=== PATIENT | female | born 1980 | race Caucasian/White ===

== ENCOUNTER 2017-10-14 13:15 | Emergency (ER) | payer OTHER ==
--- NOTE | 2017-10-14 14:50 | EDM.PDOC ---
Scribed by Mary Rosales 10/14/17 [id number] for Gurjit Turcios MD ED HPI GENERAL MEDICAL PROBLEM - General Chief Complaint: Respiratory Problem Stated Complaint: COUGH X 3 WEEKS Time Seen by Provider: 10/14/17 13:44 Source of Information: Reports: Patient, RN, RN Notes Reviewed History Limitations: Reports: No Limitations - History of Present Illness INITIAL COMMENTS - FREE TEXT/NARRATIVE: Patient presents with cough x3 weeks. She has been to the clinic on 3 occasions and treated with 2 courses of antibiotics. She is not sure what the firs one was but the second was a Z-DAVION.She has also been treated with Tessalon Perles. She has not gotten any better. The first time she was seen in the clinic she was diagnosed with an ear infection and believes it has resolved. During the past week she has developed a sore throat. She is not sure if she has had a fever or not. Duration: Constant Location: Reports: Chest Quality: Reports: Ache Severity: Moderate Improves with: Reports: None Worsens with: Reports: None Associated Symptoms: Reports: No Other Symptoms Chest Pain Score (Numeric/FACES): 3 - Related Data Allergies Allergy/AdvReac Type Severity Reaction Status Date / Time No Known Allergies Allergy Verified 10/14/17 13:40 Home Meds: Home Meds Ethinyl Estradiol/Etonogestrel [Nuvaring Vaginal Ring] 1 device ICERVIC ASDIRECTED 10/14/17 [History] Sertraline HCl [Sertraline HCl] 100 mg PO DAILY 10/14/17 [History] Social & Family History - Family History Family Medical History: Noncontributory ED ROS GENERAL - Review of Systems Review Of Systems: ROS reveals no pertinent complaints other than HPI. ED EXAM, GENERAL - Physical Exam Exam: See Below Exam Limited By: No Limitations General Appearance: Alert, WD/WN, No Apparent Distress Eye Exam: Bilateral Eye: Normal Inspection Ears: Normal External Exam, Normal Canal, Hearing Grossly Normal, Normal TMs Nose: Normal Inspection, Normal Mucosa, No Blood Throat/Mouth: Normal Inspection, Normal Lips, Normal Teeth, Normal Gums, Normal Oropharynx, Normal Voice, No Airway Compromise Head: Atraumatic, Normocephalic Neck: Normal Inspection, Supple, Non-Tender, Full Range of Motion Respiratory/Chest: Other (harsh cough, occasional produces small amount of thick yellow sputum.) Cardiovascular: Normal Peripheral Pulses, Regular Rate, Rhythm, No Edema, No Gallop, No JVD, No Murmur, No Rub GI/Abdominal: Normal Bowel Sounds, Soft, Non-Tender, No Organomegaly, No Distention, No Abnormal Bruit, No Mass (Female) Exam: Deferred Rectal (Female) Exam: Deferred Neurological: Alert, Oriented, CN II-XII Intact, Normal Cognition, Normal Gait, Normal Reflexes, No Motor/Sensory Deficits Psychiatric: Normal Affect, Normal Mood Skin Exam: Warm, Dry, Intact, Normal Color, No Rash Course - Vital Signs Last Recorded V/S: Last Vital Signs Temp 37.3 C 10/14/17 13:44 Pulse 117 H 10/14/17 13:44 Resp 18 10/14/17 13:44 BP 138/81 10/14/17 13:44 Pulse Ox 98 10/14/17 13:44 - Orders/Labs/Meds Orders: Active Orders 24 hr Category Date Time Status Chest 2V [CR] Stat Exams 10/14/17 14:00 Taken CULTURE STREP A CONFIRMATION [RM] Stat Lab 10/14/17 14:00 Results STREP SCRN A RAPID W CULT CONF [RM] Stat Lab 10/14/17 14:00 Results Labs: Rapid strep: Negative. - Radiology Interpretation Free Text/Narrative:: Chest x-ray: No acute cardiopulmonary abnormality. See rad report. Departure - Departure Time of Disposition: 14:47 Disposition: Home, Self-Care 01 Condition: Fair Clinical Impression: Bronchitis, Acute bronchospasm - Discharge Information Instructions: Bronchospasm, Adult, Acute Bronchitis, [id number] Forms: ED Department Discharge Additional Instructions: RX: Prednisone 20mg. RX: Promethazine Codeine syrup. (*do not drive or work while under the influence of this medication). Drink plenty of water. Follow up in clinic in 4-5 days for recheck. - My Orders Last 24 Hours: My Active Orders 10/14/17 14:00 Chest 2V [CR] Stat CULTURE STREP A CONFIRMATION [RM] Stat STREP SCRN A RAPID W CULT CONF [RM] Stat - Assessment/Plan Last 24 Hours: My Active Orders 10/14/17 14:00 Chest 2V [CR] Stat CULTURE STREP A CONFIRMATION [RM] Stat STREP SCRN A RAPID W CULT CONF [RM] Stat I have read and agree with the documentation that has been completed regarding this visit. By signing this record, I attest that the documentation was completed in my physical presence and is an accurate record of the encounter.
== END 2017-10-14 14:56 | disposition home or self-care (01) ==
LOC: DL.ED 13:15
DX: J98.01 Acute bronchospasm (principal); J40 Bronchitis, not specified as acute or chronic; Z79.899 Other long term (current) drug therapy
CPT/HCPCS: 71046; 87081; 87430; 99283

== ENCOUNTER 2019-05-02 10:32 | Day surgery (SDC) | payer OTHER ==
[~2019-05-02 10:32] MED LIST: Lactated Ringers 1,000 ML IV SCH
[2019-05-02] MEDS ORDERED: Propofol 200 MG/20 ML SDV IV ONE (10:33)
[2019-05-02] MEDS ORDERED: Ketorolac 30 MG/ML SDV IVPUSH ONE (10:33)
[2019-05-02] MEDS ORDERED: Midazolam 1 MG/ML 2 ML SDV IV ONE (10:33)
[2019-05-02] MEDS ORDERED: Dexamethasone 4 MG/ML SDV IV ONE (10:33)
[2019-05-02] MEDS ORDERED: fentaNYL 100 MCG/2 ML SDV IV ONE (10:33)
[2019-05-02] MEDS ORDERED: Ondansetron 4 MG/2 ML SDV IV ONE (10:33)
[2019-05-02] MEDS ORDERED: Lidocaine 2% 20 ML MDV INJECT ONE (10:33)
[2019-05-02] MEDS ORDERED: Ferric Subsulfate Topical Soln 8 GM (8 ML) Bottle ONE ×2 (11:03→11:05)
[2019-05-02] MEDS ORDERED: Silver Nitrate Applicator Each ONE (11:04)
[2019-05-02] MEDS ORDERED: Oxytocin/Normal Saline 30 UNIT/500 ML BAG ONE ×2 (11:04→12:56)
[2019-05-02] MEDS ORDERED: ceFAZolin 2 GM in Premix Bag 1 BAG IV SCH (11:30)
[2019-05-02] MEDS ORDERED: ceFAZolin 1 GM in Sodium Chloride 0.9% 50 ML IV ONE (11:30)
[2019-05-02] MEDS: Oxytocin/Normal Saline 30 UNIT/500 ML BAG IV SCH ×2 (12:25→12:59)
--- NOTE | 2019-05-02 14:46 | OR ---
DATE: 05/02/2019 PREOPERATIVE DIAGNOSIS: Incomplete miscarriage at approximately 8 weeks' gestation. POSTOPERATIVE DIAGNOSIS: Incomplete miscarriage at approximately 8 weeks' gestation, pathology report pending. PROCEDURE: Dilation and curettage with suction curettage. ANESTHESIA: General. ESTIMATED BLOOD LOSS: Approximately 250 mL. COMPLICATIONS: None. DESCRIPTION OF PROCEDURE: After the patient had received her 2 g of Ancef preoperatively, she was taken back to the operating room. The patient was routinely prepped and draped in the usual fashion after the induction of satisfactory general anesthesia. The bimanual exam was again done and revealed the uterus to be in the mid position and about 8-week size. There were no adnexal masses. There was only a very scant amount of bleeding from the cervix, which appeared to be closed. Now, I had to use 2 different weighted speculums to try to get access to the cervix. Actually, I used long vaginal retractors as well and neither of these measures gave us access to the cervix, so finally we did utilize a bivalve speculum. Now, the cervix came into better view, and I did cleanse the cervix again with extra Betadine prepping and scrubbing. The single-tooth tenaculum was now attached to the anterior lip of the cervix, and we were carefully able to bring the cervix down towards me slightly for better exposure. Now, the uterus was very carefully and gently sounded to approximately 8.5 cm. Then, the Aguila dilators were utilized, and we were able to go to #8. Now, the curette was introduced and a moderate to large amount of tissue was obtained on the curettage. Great caution and extra caution were taken to make sure that all aspects of the endometrial cavity were very carefully and very symmetrically curetted, but also we were careful to not over- curette this delicate organ. As mentioned above, there was a moderate to large amount of tissue now and also there was some brisk bleeding that was occurring. Then, I switched over to the suction curettage using a #8 curved cannula and some blood was sucked out of the vaginal canal and now the cannula was carefully introduced and once again we were very careful and symmetrical and methodical to very gently but thoroughly do a suction curettage procedure on all aspects of the endometrial cavity. Once again, I did see some fairly heavy bleeding and at this time the IV intraoperative Pitocin was begun. This seemed to improve the bleeding and then I did go back one more time with a very gentle curettage using the regular curette. A slight amount of tissue was further obtained and then one last time we went back in with the suction curettage to make every effort to completely evacuate this tissue. Now, the bleeding did start to subside and also at 2 different junctures, I did carefully do uterine massage to promote clamping down and jenaro of the uterus. This helped the blood loss and finally there was no further blood coming from the external os, and we did submit all of the tissue from the suction curettage as well as the material from the regular D and C on the Telfa pads. All of the instruments were removed after the cervix and vaginal canal were very carefully inspected again towards the end of the procedure. As mentioned above, there was no further bleeding from the cervix. The bimanual exam was again repeated and abundant uterine massage, and pelvic exam was unchanged and normal. The uterus was a bit smaller, of course. The patient's vital signs have remained stable at all times during the procedure. The sponge and instrument count was reported as correct. She did receive 2 g of Ancef preoperatively. I have visited previously as well as in the postop recovery area with the patient previously and with the postoperatively and very thorough postoperative instructions for followup were given to them. They do have my cellphone number, and I told them I am puff ironer for the next 4 days and 4 nights, and I encouraged them to please call me at once if any questions or problems whatsoever. They assured me that they will keep in contact with me. We will arrange for an appointment with her to see Dr. Rowe in approximately 8 or 9 days. The patient tolerated the procedure well and did go to the recovery room in very stable condition. [facility] /[id number]
== END 2019-05-02 14:35 | disposition home or self-care (01) ==
LOC: DL.SDS 10:32
PROVIDERS: ATTEND Obstetrics & Gynecology
DX: O03.1 Delayed or excessive hemorrhage following incomplete spontaneous abortion (principal); F41.9 Anxiety disorder, unspecified; F32.9 Major depressive disorder, single episode, unspecified; G40.909 Epilepsy, unspecified, not intractable, without status epilepticus; Z91.040 Latex allergy status; Z79.899 Other long term (current) drug therapy
CPT/HCPCS: 36415; 59812; 85027; J0690; J2590; J7120

== ENCOUNTER 2020-06-01 10:12 | Inpatient (IN) | payer OTHER ==
[2020-06-01] MEDS ORDERED: Misoprostol 25 MCG (1/4 of 100 MCG) Tab VAG PRN (11:53)
[2020-06-01] MEDS ORDERED: Acetaminophen 325 MG Tab PO PRN (11:53)
[2020-06-01] MEDS ORDERED: Sodium Chloride 0.9% 10 ML Syringe FLUSH PRN (11:53)
[2020-06-01] MEDS ORDERED: Misoprostol 50 MCG (1/2 of 100 MCG) Tab VAG ONE (11:54)
[2020-06-01] MEDS ORDERED: Oxytocin/Normal Saline 30 UNIT/500 ML BAG IV SCH (12:00)
[2020-06-01] MEDS ORDERED: Lactated Ringers 1,000 ML IV SCH (12:00)
--- NOTE | 2020-06-01 18:02 | OBOUT ---
DATE: 06/01/2020 TIME: 11:23 to 11:43. REASON FOR NST: 1. Intrauterine at 37-1/7 weeks, confirmed with 7-week ultrasound. 2. Preeclampsia without severe features. 3. Gestational thrombocytopenia with platelets of 99,000 with large platelets and clumped platelets noted on the microscope, suspect greater than 100,000. 4. Impaired glucose tolerance. 5. History of previa - resolved. 6. GBS negative. 7. G2, P0-0-1-0. NST INTERPRETATION: During this time period, heart tone baseline is approximately 135 and although broken, it appears to be at least two 15 x 15 beats per minute accelerations making this strip reactive as well as reassuring. Tocometer reveals some irritability, potential 1 contraction. Blood pressures over in the clinic were elevated, please see H and P. Here, they have come down to more normal range of 123/83, recheck 127/65. ASSESSMENT: 1. Nonstress test, reactive and reassuring. 2. Tocometer with irritability and contraction. PLAN: Suspect preeclampsia based on significantly elevated blood pressures over in the clinic as well as now having protein-creatinine ratio greater than 800, platelets of 99,000, and concerns potentially for HELLP variant and is not considered severe at this point in time. We will start induction and follow clinically and closely. I did discuss with patient. She understands and agrees with above treatment plan. We will start Cytotec and did discuss the risks, benefits, alternatives, and complications of this. She understands and agrees. Verbal and written consent will be obtained prior to administering. [facility] /[id number]
[2020-06-01] MEDS ORDERED: hydrOXYzine HCl 25 MG Tab PO PRN (22:15)
[2020-06-02] MEDS ORDERED: Ondansetron 4 MG/2 ML SDV IVPUSH PRN (00:01)
[2020-06-02] MEDS ORDERED: ePHEDrine 50 MG/ML SDV IVPUSH PRN ×2 (00:01→09:01)
[2020-06-02] MEDS ORDERED: Naloxone 2 MG/2 ML Syringe IVPUSH PRN ×2 (00:01→09:01)
[2020-06-02] MEDS ORDERED: Promethazine 25 MG/ML SDV IM PRN (00:01)
[2020-06-02] MEDS ORDERED: Sodium Chloride 0.9% 1,000 ML IV SCH (00:15)
[2020-06-02] MEDS ORDERED: Lactated Ringers 500 ML IV SCH ×2 (00:15)
[2020-06-02] MEDS: Lactated Ringers 1,000 ML IV SCH ×6 (01:04→16:33)
[2020-06-02] MEDS: fentaNYL 100 MCG/2 ML SDV IVPUSH PRN ×2 (02:41→03:56)
[2020-06-02] MEDS ORDERED: EPINEPHrine 1 MG/1 ML Amp ONE ×2 (05:08→07:00)
[2020-06-02] MEDS ORDERED: fentaNYL 100 MCG/2 ML SDV ONE (05:08)
[2020-06-02] MEDS ORDERED: ePHEDrine 50 MG/ML SDV ONE (05:28)
--- NOTE | 2020-06-02 05:51 | PCM.PRNOTE ---
- Free Text/Narrative Note: Requested to provide analgesia to full term patient in severe pain. Upon entering the room, patient is sitting on edge of bed complaining of severe abdominal/pelvic pain and discomfort. Procedure was discussed with patient including adverse outcomes and expectations. Pt consented to analgesia, SAB/IT. Pt placed into a proper sitting position. Landmarks for SAB/IT were identified and marked. Hands were washed and appropriate PPE was applied. Back was prepped with betadine x3. A sterile, transparent, fenestrated drape was applied. Excess betadine was removed. Using 3 mL of a 1% lidocaine solution, a skin wheel was placed at the L2/L3 interspace. A 24 ga (4 inch) Pencan spinal needle was inserted until positive for CSF. Negative for heme or paresthesias. Injected fentanyl 30 mcg, sufentanil 25 mcg, and 7.5 mg of a 0.75% bupivacaine solution with an epi wash. Pt was placed left lateral tilt position for approximately 20 minutes. BP dropped from 170's systolic to 93/58. Pt was not symptomatic. FHR was normal with good variability. Gave the patient ephedrine 10mg IVP. BP increased to 134 systolic. BP continues to settle in the 110's. No s/s of hypotension or a decrease in FHR. Will continue to monitor. Procedure Date & Time: 06/02/20 [id number]
[2020-06-02] MEDS ORDERED: ePHEDrine 50 MG/ML SDV IV ONE (07:00)
[2020-06-02] MEDS ORDERED: fentaNYL 100 MCG/2 ML SDV ITHECAL ONE (07:00)
[2020-06-02] MEDS ORDERED: Phenylephrine 1% 10 MG/ML SDV IV ONE (07:00)
--- NOTE | 2020-06-02 07:10 | PCM.PRNOTE ---
- Free Text/Narrative Note: Called back for asymptomatic hypotension. BP's were reported in the 70's. When I arrived, BP was 84/43. Gave Ephedrine 10 mg IVP and BP came up to 95 systolic. BP then went back down to 85 so I gave phenylephrine 50 mcg. BP up to low 100's so another 50 mcg of phenylephrine was given. BP's went into 130's and has stayed above 120's since. Pt was also experiencing symptoms of excessive opiates. She was never apneic but SpO2 required oxygen. Pt was shaking head to "keep awake" and was sonorous while sleeping. I elected to give narcan since we do not have nubain on formulary any more. Pt was given 0.4 mg Narcan IV and almost immediately pt rebounded. Breathing was normal, no more shaking of head and she appeared comfortable as she slept. The baby developed severe tachycardia with FHR reaching low 200's with no drops below 190s. I knew this was related to medication administration so we watched mom and baby closely. After 10-12 minutes, heart rate started to come down but poor variability. After 20 minutes, heart rate was back to normal in the range of 140 with minimal variability. After 30 minutes, FHR was 130-145 with good variability. Pt is on left side with BP cuff on right arm and pressures are 120's systolic. Dr Sims was called in and he is currently inspecting the mom and baby. Will continue to monitor.
--- NOTE | 2020-06-02 08:22 | PN ---
DATE: 06/02/2020 SUBJECTIVE: The patient is comfortable status post intrathecal. She received one this morning, had concerns with blood pressure thereafter, did receive ephedrine and a couple of doses of phenylephrine as well as Narcan. Please see other notes for further details. OBJECTIVE: heart tones are in the 150s to 160s and partially in the 170s at the current time of dictation. Variability has improved over the last 10 minutes. Tocometer reveals contractions every 5 to 6 minutes. Pitocin has been stopped that was started earlier this morning. Vaginal exam reveals to be 7 cm, 100% effaced, 0 station, vertex suspected. ASSESSMENT: Intrauterine at 37 and now 2/7 weeks confirmed with a 7- week ultrasound with preeclampsia without severe features, gestational thrombocytopenia with platelets of 99,000, but there are clumps, so suspect greater than 100,000, with impaired glucose tolerance in a group B streptococcus negative G2, P0-0-1-0, now status post Cytotec x2 yesterday, spontaneous rupture of membranes yesterday at 2325 hours, and Pitocin augmentation started on 06/02/2010 with intrathecal placed, requiring phenylephrine and ephedrine and Narcan with now improvement in heart tone variability and the patient's blood pressures. PLAN: We will continue to follow clinically and closely at this point in time. The patient understands and agrees with the above treatment plan. Plans were discussed with her as well. [facility] /[id number]
[2020-06-02] MEDS ORDERED: Oxytocin/Normal Saline 60 UNIT/1,000 ML BAG ONE (08:56)
[2020-06-02] MEDS ORDERED: diphenhydrAMINE 50 MG/ML SDV IVPUSH PRN (09:01)
[2020-06-02] MEDS ORDERED: Citric Acid/Sodium Citrate Solution 30 ML Cup PO ONE (09:01)
[2020-06-02] MEDS ORDERED: Misoprostol 400 MCG (4 X 100 MCG TAB) RECTAL PRN (09:01)
[2020-06-02] MEDS ORDERED: Methylergonovine 0.2 MG/1 ML Amp IM PRN (09:01)
[2020-06-02] MEDS ORDERED: Carboprost Tromethamine 250 MCG/1 ML Amp IM PRN (09:01)
[2020-06-02] MEDS ORDERED: Tranexamic Acid 1,000 MG in Sodium Chloride 0.9% 100 ML IV PRN (09:01)
[2020-06-02] MEDS ORDERED: ceFAZolin 2 GM in Premix Bag 1 BAG IV ONE (09:01)
[2020-06-02] MEDS ORDERED: Ondansetron 4 MG/2 ML SDV IV ONE (09:30)
[2020-06-02] MEDS ORDERED: Dexamethasone 4 MG/ML SDV IV ONE (09:30)
[2020-06-02] MEDS ORDERED: Morphine PF 1 MG/ML Amp ITHECAL ONE (09:30)
[2020-06-02] MEDS ORDERED: Ketorolac 30 MG/ML SDV IVPUSH ONE (09:30)
[2020-06-02] MEDS ORDERED: Lactated Ringers 1,000 ML IV ONE (09:30)
[2020-06-02] MEDS ORDERED: Oxytocin/Normal Saline 30 UNIT/500 ML BAG IV SCH (09:30)
--- NOTE | 2020-06-02 13:33 | OBOUT ---
DATE: 06/02/2020 TIME: 8:30 to 8:40. REASON FOR CONTRACTION STRESS TEST: 1. Intrauterine at 37-2/7 weeks confirmed with 7-week ultrasound. 2. Concerns with heart tones. 3. Preeclampsia without severe features. 4. Gestational thrombocytopenia. Platelets at 99,000 with large platelets clump platelets noted on slide, so greater than 100,000. 5. Impaired glucose tolerance. 6. History of previa, resolved. 7. Group B Streptococcus negative. 8. G2, P0-0-1-0. 9. Spontaneous rupture of membranes at 2325 hours on 06/01/2020. CONTRACTION STRESS TEST INTERPRETATION: During this time period, there is [id number] variability with 2 contractions noted with both of them revealing late decelerations. ASSESSMENT: Contractions, positive with nonreactive strip. PLAN: Due to this, I did discuss with the patient concerns with heart tones and nonreassuring status. Did discuss with her and her proceeding with primary low transverse . I did discuss with them risks, benefits, alternatives, and complications of , including, but not limited to, infection, bleeding, damage to internal organs such as bowel, bladder, tubes, uterus, ovaries, and sometimes fetus rarely needing a blood transfusion or further surgery, and even rarer maternal or . She understands, agrees, wished to proceed. Verbal and written consent obtained. Questions were answered. We will proceed to the OR as soon as crew is ready and available. Please see orders for further details as well. Of note, around this contraction stress test, a vaginal exam was done and revealed her to be 7 cm for, unchanged from approximately over an hour prior, 100% effaced, 0 station, vertex suspected, and new caput is noted. We will proceed as above. [facility] /[id number]
--- NOTE | 2020-06-02 13:33 | OR ---
DATE: 06/02/2020 PREOPERATIVE DIAGNOSES: 1. Intrauterine at 37 and 2/7 weeks, confirmed with 7 weeks ultrasound. 2. Nonreassuring status. 3. Positive contraction stress test that was nonreactive. 4. Preeclampsia with severe features. 5. Gestational thrombocytopenia with platelets of 99,000 with large clump platelets falsely low. 6. Impaired glucose tolerance. 7. History of previa - resolved early in the . 8. Group B Streptococcus negative. 9. G2, P0-0-1-0. POSTOPERATIVE DIAGNOSES: 1. Intrauterine at 37 and 2/7 weeks, confirmed with 7 weeks ultrasound, delivered. 2. Nonreassuring status. 3. Positive contraction stress test that was nonreactive. 4. Preeclampsia with severe features. 5. Gestational thrombocytopenia with platelets of 99,000 with large clump platelets falsely low. 6. Impaired glucose tolerance. 7. History of previa - resolved early in the . 8. Group B Streptococcus negative. 9. G2, P0-0-1-0. PROCEDURES PERFORMED: On 06/01, she underwent NST, Cytotec x2, and on 06/02/2020, underwent Pitocin augmentation, contraction stress test followed by primary low transverse with 2-layer uterine closure. HEAD GREASE MAKER: Trinity Rowe MD; and Franki Mcneil MS-3. ANESTHESIA: Spinal. ESTIMATED BLOOD LOSS: 400 mL. IV FLUIDS: LR 1500 mL, Pitocin 300 mL. URINE OUTPUT: 675 mL clear yellow. START: 9:32. UTERINE INCISION: 9:33. DELIVERY: 9:34. STOP: 9:50. FINDINGS: Female, score 6 and 9, weight pending. DESCRIPTION OF PROCEDURE: After proper consent was obtained, the patient was brought to the operating room where spinal anesthetic was administered. Alvarez was placed in the preop under sterile conditions. Abdomen was prepped and draped in a normal sterile fashion. Placed in supine position with a left lateral tilt. A skin incision was then made on the lower abdomen in a transverse Pfannenstiel fashion. This was carried down to the fascia and scored in the midline. Subcutaneous tissue raked by Art traction. Fascial incision was extended in transverse fashion using blunt technique. Superiorly and inferiorly, fascia was dissected from the rectus and pyramidalis muscles using blunt technique. Rectus muscles were in the midline with blunt technique. Abdominal cavity was entered in blunt technique. Incision was extended superiorly and inferiorly with blunt technique. Dwaine O large retractor was then introduced and used. Vesicouterine peritoneum was identified, incised in transverse fashion with Metzenbaum scissors and a bladder flap was made digitally. A curvilinear incision was made on the lower uterine segment at 0933 hours. Clear fluid returned. Uterine incision was then extended in a transverse fashion using blunt technique. vertex was then brought up from the pelvis through the incision followed by rest of the without difficulty. Mouth and nares were suctioned. Cord was doubly clamped and cut and infant was brought over to the team. Then, approximately 10 mL of cord blood was then obtained for labs. Placenta then delivered with gentle cord traction and fundal massage. Uterine cavity was then cleared of all blood clots and debris with lap sponge. Irby clamps were used to grasp the uterine incision, and this was closed in a running locked fashion and tied at lateral margins with 1-0 Vicryl. Second imbricating layer was then applied with 1-0 Vicryl, tied at lateral margins. First inspection of the uterine incision revealed hemostasis. Dwaine O retractor was then removed and paracolic gutters were then cleared of all blood clots and debris with lap sponge. Anterior cul-de-sac was then inspected copiously and blood clots and debris removed and second and final inspection of uterine incision and anterior cul-de-sac revealed hemostasis. Rectus muscles were then reapproximated in midline with [id number] stitch using 1-0 Vicryl. Subfascial tissues were found to be hemostatic and fascia closed in a running fashion and tied at lateral margins with 0 looped PDS. Subcutaneous tissue irrigated copiously and hemostasis reassured. Skin was reapproximated with medium sybil. Sterile Aquacel dressing was applied. Uterine fundus was firm and massaged at the conclusion of the case, -2 below umbilicus. No immediate complications were noted. Sponge, lap, and needle counts were correct. The patient received 2 g of Ancef preoperatively, Pitocin per protocol, and received Toradol at the conclusion of the case for pain control. Mother and are currently stable at the time of dictation. [facility] /[id number]
[2020-06-02] MEDS: Simethicone 80 MG Tab.Chew PO SCH ×3 (13:56→22:12)
[2020-06-02] MEDS ORDERED: Ketorolac 30 MG/ML SDV IVPUSH SCH (14:00)
[2020-06-02] MEDS: Ketorolac 30 MG/ML SDV IVPUSH SCH ×2 (16:28→22:11)
[2020-06-03] MEDS: Ketorolac 30 MG/ML SDV IVPUSH SCH (04:10)
[2020-06-03] MEDS: Lactated Ringers 1,000 ML IV SCH (04:12)
[2020-06-03] MEDS: Acetaminophen/oxyCODONE 325-5 MG Tab PO PRN ×4 (07:40→21:57)
[2020-06-03] MEDS: Simethicone 80 MG Tab.Chew PO SCH ×4 (08:59→20:10)
[2020-06-03] MEDS: Prenatal Multivitamin with Calcium/Folic Acid/Iron Tab PO SCH (08:59)
[2020-06-03] MEDS: Docusate Sodium 100 MG Cap PO PRN ×2 (08:59→20:10)
--- NOTE | 2020-06-03 09:18 | PN ---
DATE: 06/03/2020 Postop day #1 status post primary low transverse with 2-layer uterine closure. SUBJECTIVE: The patient has been tolerating p.o. She did pass flatus today. Pain is under control with medications. Alvarez has just been removed. OBJECTIVE: Vital Signs: Temperature 97.8, heart rate 86, blood pressure 125/80, and respiratory rate 16. Lungs: Clear to auscultation bilaterally. Heart: S1 and S2. Regular rate and rhythm. Abdomen: Firm uterus around the umbilicus. Aquacel dressing is dry and intact. Extremities: Peripheral edema is noted. LABORATORY DATA: White cell count 10.1, hemoglobin down to 9 compared to predelivery hemoglobin 12.7, and platelets at 71,000 compared to predelivery platelets of 99,000. Exam done in conjunction with Franki Mcneil MS-4. ASSESSMENT AND PLAN: 1. Postop day #1, status post primary low transverse with 2-layer uterine closure. 2. Preeclampsia without severe features. At this point in time, blood pressures are under control. Urine output has been adequate and delivery has been instituted. We will continue to follow clinically and closely. 3. Gestational thrombocytopenia. History of large platelets noted on the exam when she was admitted. She has had 71,000 right now. We will recheck CBC tomorrow and follow clinically and closely. 4. Anemia of acute blood loss. Hemoglobin dropping down to 9 from 12.7. We will institute iron and follow clinically and closely. Plans were discussed with the patient. She understands and agrees to above treatment plan. [facility] /[id number]
[2020-06-03] MEDS: Ibuprofen 800 MG Tab PO PRN ×2 (11:58→20:10)
[2020-06-04] MEDS: Acetaminophen/oxyCODONE 325-5 MG Tab PO PRN ×5 (02:10→20:06)
[2020-06-04] MEDS: Ibuprofen 800 MG Tab PO PRN ×3 (06:01→22:22)
[2020-06-04] MEDS: Simethicone 80 MG Tab.Chew PO SCH ×4 (08:37→20:05)
[2020-06-04] MEDS: Prenatal Multivitamin with Calcium/Folic Acid/Iron Tab PO SCH (08:37)
[2020-06-04] MEDS: Ferrous Sulfate 325 MG Tab PO SCH (08:37)
[2020-06-04] MEDS: Docusate Sodium 100 MG Cap PO PRN ×2 (08:43→20:04)
--- NOTE | 2020-06-04 09:14 | PN ---
DATE: 06/04/2020 SUBJECTIVE: The patient is tolerating p.o., has ambulated and is urinating well. Pain is under control. OBJECTIVE: Vital Signs: Temperature 98; heart rate 92; blood pressure 131/91, prior to that 136/86; respiratory rate is between 16 and 18. Lungs: Clear to auscultation bilaterally. Heart: S1 and S2. Regular rate and rhythm. Abdomen: Firm uterus right around the umbilicus. Aquacel dressing dry and intact. Extremities: 1 to 2+ pitting edema of the proximal tibia. LABORATORY DATA: White cell count 9.1, hemoglobin 9.7, platelets 81,000. ASSESSMENT: Postop day #2, status post primary low transverse with 2- layer uterine closure for nonreassuring status with complicated by preeclampsia without severe features, and gestational thrombocytopenia, and this has been followed closely. Noted to have large platelets on the slide. PLAN: Continue routine cares. Follow clinically and closely. Platelets are now improving, they were 71,000 yesterday. Hemoglobin stable. The patient has been started on iron. We will repeat CBC tomorrow and consider discharge tomorrow. Did discuss discharge planning as well as recommendation to follow up on Sunday for both her and her baby. Dr. Flowers will be covering in my absence. [facility] /[id number]
[2020-06-05] MEDS: Acetaminophen/oxyCODONE 325-5 MG Tab PO PRN ×4 (00:09→12:28)
[2020-06-05] MEDS: Docusate Sodium 100 MG Cap PO PRN (08:22)
[2020-06-05] MEDS: Prenatal Multivitamin with Calcium/Folic Acid/Iron Tab PO SCH (08:22)
[2020-06-05] MEDS: Simethicone 80 MG Tab.Chew PO SCH ×3 (08:22→17:15)
[2020-06-05] MEDS: Ferrous Sulfate 325 MG Tab PO SCH (08:22)
[2020-06-05] MEDS: Ibuprofen 800 MG Tab PO PRN ×2 (08:23→17:16)
--- NOTE | 2020-06-05 10:45 | PCM.PNPP ---
- General Info Date of Service: 06/05/20 Subjective Update: Patient is post op day 3 from a primary LTCS. She is doing well. She developed preeclampsia prior to delivery but her blood pressures have been stable. She had gestational thrombocytopenia and platelet count has been increasing. She's had no headache, vision changes, worsening abdominal pain. She does have lower extremity edema that is stable. She has not tolerated compression stockings. She is passing gas and urinating spontaneously. She has not had a bowel movement yet. She's had some bloating and gas pains. She denies fever, chills, nausea, or vomiting. She's had no drainage from her incisions. She feels some pulling from the right side of the incision but otherwise is doing well. Her pain has been well controlled. Functional Status: Reports: Pain Controlled - Review of Systems General: Denies: Fever, Chills HEENT: Denies: Headaches Pulmonary: Denies: Shortness of Breath, Cough Cardiovascular: Reports: Edema. Denies: Chest Pain, Lightheadedness Gastrointestinal: Denies: Nausea, Vomiting Neurological: Denies: Headache, Numbness - Patient Data Vital Signs - Most Recent: Last Vital Signs Temp 99.0 F 06/05/20 08:00 Pulse 93 06/05/20 08:00 Resp 16 06/05/20 08:00 BP 138/99 H 06/05/20 08:00 Pulse Ox 98 06/05/20 08:00 Weight - Most Recent: 191 lb Lab Results - Last 24 Hours: Laboratory Results - last 24 hr 06/05/20 Range/Units 04:50 WBC 7.0 (5.0-10.0) 10^3/uL RBC 3.27 L (4.2-5.4) 10^6/uL Hgb 10.0 L (12.0-16.0) g/dL Hct 31.8 L (37.0-47.0) % MCV 97.2 (80-100) fL MCH 30.6 (27.0-34.0) pg MCHC 31.4 L (33.0-35.0) g/dL Plt Count 103 L (150-450) 10^3/uL Med Orders - Current: Current Medications Acetaminophen (Tylenol) 650 mg PO Q4H PRN PRN Reason: Pain/Fever Carboprost Tromethamine (Hemabate Ds) 250 mcg IM ONETIME PRN PRN Reason: Bleeding Diphenhydramine HCl (Benadryl) 25 mg IVPUSH Q6H PRN PRN Reason: Itching or Nausea Docusate Sodium (Colace) 100 mg PO Q12H PRN PRN Reason: Constipation Last Admin: 06/05/20 08:22 Dose: 100 mg Documented by: Ephedrine Sulfate (Ephedrine Sulfate) 5 mg IVPUSH SEECOMMENT PRN PRN Reason: Other Fentanyl (Sublimaze) 100 mcg IVPUSH Q1H PRN PRN Reason: Pain Last Admin: 06/02/20 03:56 Dose: 100 mcg Documented by: Ferrous Sulfate (Ferrous Sulfate) 325 mg PO WITHBREAKFAST PAUL Last Admin: 06/05/20 08:22 Dose: 325 mg Documented by: Hydroxyzine HCl (Atarax) 50 mg PO ONETIME PRN PRN Reason: Pain Last Admin: 06/01/20 22:42 Dose: 50 mg Documented by: Sodium Chloride (Normal Saline) 1,000 mls @ 500 mls/hr IV .BOLUS PAUL Lactated Ringer's (Ringers, Lactated) 1,000 mls @ 125 mls/hr IV ASDIRECTED PAUL Last Admin: 06/03/20 04:12 Dose: 125 mls/hr Documented by: Tranexamic Acid 1,000 mg/ (Sodium Chloride) 110 mls @ 660 mls/hr IV ONETIME PRN PRN Reason: Bleeding Oxytocin/Sodium Chloride (Pitocin In Ns 30 Unit/500 Ml) 30 unit in 500 mls @ 125 mls/hr IV TITRATE PAUL; Protocol Last Titration: 06/02/20 12:00 Dose: 0 munits/min, 0 mls/hr Documented by: Ibuprofen (Motrin) 800 mg PO Q8H PRN PRN Reason: mild pain or fever Last Admin: 06/05/20 08:23 Dose: 800 mg Documented by: Methylergonovine Maleate (Methergine) 0.2 mg IM ONETIME PRN PRN Reason: Excessive Vaginal Bleeding Misoprostol (Cytotec) 25 mcg VAG Q4H PRN PRN Reason: cervical ripening Last Admin: 06/01/20 17:50 Dose: 25 mcg Documented by: Misoprostol (Cytotec) 800 mcg RECTAL ASDIRECTED PRN PRN Reason: Excessive bleeding Naloxone HCl (Narcan) 0.1 mg IVPUSH SEECOMMENT PRN PRN Reason: Respiratory Depression Naloxone HCl (Narcan) 0.1 mg IVPUSH SEECOMMENT PRN PRN Reason: Respiratory Depression Ondansetron HCl (Zofran) 4 mg IVPUSH Q4H PRN PRN Reason: Nausea/Vomiting Last Admin: 06/02/20 04:55 Dose: 4 mg Documented by: Oxycodone/Acetaminophen (Percocet 325-5 Mg) 1 tab PO Q4H PRN PRN Reason: Pain (moderate 4-6) Last Admin: 06/03/20 07:40 Dose: 1 tab Documented by: Oxycodone/Acetaminophen (Percocet 325-5 Mg) 2 tab PO Q4H PRN PRN Reason: Pain (moderate 4-6) Last Admin: 06/05/20 08:23 Dose: 2 tab Documented by: Prenat Multivit/[place]/Iron/Folic Ac ( Plus Iron) 1 each PO DAILY [facility] Last Admin: 06/05/20 08:22 Dose: 1 each Documented by: Promethazine HCl (Phenergan) 12.5 mg IM Q6H PRN PRN Reason: Nausea/Vomiting Simethicone (Simethicone) 160 mg PO QID [facility] Last Admin: 06/05/20 08:22 Dose: 160 mg Documented by: Sodium Chloride (Saline Flush) 10 ml FLUSH ASDIRECTED PRN PRN Reason: Keep Vein Open Discontinued Medications Citric Acid/Sodium Citrate (Bicitra Solution) 30 ml PO ONETIME ONE Stop: 06/02/20 09:02 Last Admin: 06/02/20 13:56 Dose: Not Given Documented by: Dexamethasone (Dexamethasone) 8 mg IV .STK-MED ONE Stop: 06/02/20 09:31 Ephedrine Sulfate (Ephedrine Sulfate) 5 mg IVPUSH Q5M PRN PRN Reason: See Label Comments Ephedrine Sulfate (Ephedrine Sulfate) Confirm Administered Dose 50 mg .ROUTE .STK-MED ONE Stop: 06/02/20 05:29 Last Admin: 06/02/20 13:54 Dose: Not Given Documented by: Ephedrine Sulfate (Ephedrine Sulfate) 10 mg IV .STK-MED ONE Stop: 06/02/20 07:01 Epinephrine HCl (Adrenalin) Confirm Administered Dose 1 mg .ROUTE .STK-MED ONE Stop: 06/02/20 05:09 Last Admin: 06/02/20 13:54 Dose: Not Given Documented by: Epinephrine HCl (Adrenalin) 0.1 mg .XX .STK-MED ONE Stop: 06/02/20 07:01 Fentanyl (Sublimaze) Confirm Administered Dose 100 mcg .ROUTE .STK-MED ONE Stop: 06/02/20 05:09 Last Admin: 06/02/20 13:54 Dose: Not Given Documented by: Fentanyl (Sublimaze) 25 mcg ITHECAL .STK-MED ONE Stop: 06/02/20 07:01 Lactated Ringer's (Ringers, Lactated) 1,000 mls @ 500 mls/hr IV ASDIRECTED PAUL Oxytocin/Sodium Chloride (Pitocin In Ns 30 Unit/500 Ml) 30 unit in 500 mls @ 125 mls/hr IV TITRATE PAUL; Protocol Last Titration: 06/02/20 06:22 Dose: 0 munits/min, 0 mls/hr Documented by: Lactated Ringer's (Ringers, Lactated) 500 mls @ 999 mls/hr IV SEECOMMENT PAUL Lactated Ringer's (Ringers, Lactated) 500 mls @ 999 mls/hr IV .BOLUS PAUL Lactated Ringer's (Ringers, Lactated) 1,000 mls @ 125 mls/hr IV ASDIRECTED PAUL Last Admin: 06/02/20 06:40 Dose: 125 mls/hr Documented by: Oxytocin/Sodium Chloride (Pitocin In Ns 30 Unit/500 Ml) Confirm Administered Dose 60 unit in 1,000 mls @ as directed .ROUTE .STK-MED ONE Stop: 06/02/20 08:57 Cefazolin Sodium/Dextrose 2 gm (/ Premix) 50 mls @ 100 mls/hr IV ONETIME ONE Stop: 06/02/20 09:30 Last Admin: 06/02/20 13:57 Dose: Not Given Documented by: Lactated Ringer's (Ringers, Lactated) 1,000 mls @ as directed IV .STK-MED ONE Stop: 06/02/20 09:31 Cefazolin Sodium/Dextrose (Ancef) 50 mls @ as directed IV .STK-MED ONE Stop: 06/02/20 09:31 Ketorolac Tromethamine (Toradol) 15 mg IVPUSH Q6H PAUL Stop: 06/03/20 04:01 Last Admin: 06/03/20 04:10 Dose: 15 mg Documented by: Ketorolac Tromethamine (Toradol) 30 mg IVPUSH .STK-MED ONE Stop: 06/02/20 09:31 Misoprostol (Cytotec) 50 mcg VAG Q4H ONE Stop: 06/01/20 11:55 Last Admin: 06/01/20 13:21 Dose: 50 mcg Documented by: Morphine Sulfate (Duramorph Pf) 0.15 mg ITHECAL .STK-MED ONE Stop: 06/02/20 09:31 Ondansetron HCl (Zofran) 4 mg IV .STK-MED ONE Stop: 06/02/20 09:31 Phenylephrine HCl (Nayan-Synephrine) 0.1 mg IV .STK-MED ONE Stop: 06/02/20 07:01 Sufentanil Citrate (Sufenta) Confirm Administered Dose 50 mcg .ROUTE .STK-MED ONE Stop: 06/02/20 05:09 Last Admin: 06/02/20 13:54 Dose: Not Given Documented by: Sufentanil Citrate (Sufenta) 30 mcg ITHECAL .STK-MED ONE Stop: 06/02/20 07:01 - Interaction Support Person: - Recovery Exam Fundal Tone: Firm Fundal Level: At Umbilicus Fundal Placement: Midline Lochia Amount: Small Lochia Color: Rubra/Red Perineum Description: Intact, Minimal Bruising/Swelling Episiotomy/Laceration: None Bladder Status: Voiding Urinary Elimination: Indwelling Catheter - Exam General: Alert, Oriented HEENT: Pupils Equal, Pupils Reactive, Mucous Membr. Moist/[place] Neck: Supple, Trachea Midline Lungs: Clear to Auscultation, Normal Respiratory Effort Cardiovascular: Regular Rate, Regular Rhythm GI/Abdominal Exam: Soft, No Distention Extremities: Non-Tender, Pedal Edema (2+) Skin: Warm, Dry, Intact Wound/Incisions: Healing Well, Dressing Dry and Intact, No Drainage Neurological: No New Focal Deficit Psy/Mental Status: Normal Mood - Problem List & Annotations (1) Gestational thrombocytopenia SNOMED Code(s): 974832404 Code(s): O99.119 - OTH DIS OF BLD/BLD-FORM ORG/IMMUN MECHNSM COMP PREG,UNSP TRI; D69.6 - THROMBOCYTOPENIA, UNSPECIFIED Status: Acute (2) Preeclampsia SNOMED Code(s): 622500323 Code(s): O14.90 - UNSPECIFIED PRE-ECLAMPSIA, UNSPECIFIED TRIMESTER Status: Acute (3) S/P primary low transverse SNOMED Code(s): 009515035, 05962636, 851838908, 270979497, 196370606 Code(s): Z98.891 - HISTORY OF UTERINE SCAR FROM PREVIOUS SURGERY Status: Acute (4) Lower extremity edema SNOMED Code(s): 158159026 Code(s): R60.0 - LOCALIZED EDEMA Status: Acute (5) AMA (advanced maternal age) multigravida 35+ SNOMED Code(s): 250430619 Code(s): O09.529 - SUPERVISION OF ELDERLY MULTIGRAVIDA, UNSPECIFIED TRIMESTER Status: Acute - Problem List Review Problem List Initiated/Reviewed/Updated: Yes - My Orders Last 24 Hours: My Active Orders 06/05/20 10:44 Ready for Discharge [RC] PER UNIT ROUTINE - Plan Plan:: Continue post cares. Discharge to home today. Blood pressures borderline so will have her continue to monitor. Encouraged oral hydration to increase urinary output. Recommended compression stockings and leg elevation. Simethicone prescribed for gas pains. Platelet count is increasing. Normal post cares, precautions discussed. She will follow up with Dr. Sims for incision check and staple removal. Belgica Crandall MD
== END 2020-06-05 18:13 | disposition home or self-care (01) | DRG 787 ==
LOC: DL.OBCHECK 10:12 → DL.OB 11:53 → OBSVTOIN 06-02 09:34
PROVIDERS: ADMIT Family Medicine; ATTEND Family Medicine
PROC: 10D00Z1 Extraction of Products of Conception, Low, Open Approach (ICD-10-PCS; principal; 2020-06-02)
PROC: 3E0P7VZ Introduction of Hormone into Female Reproductive, Via Natural or Artificial Opening (ICD-10-PCS; 2020-06-02)
DX: O14.14 Severe pre-eclampsia complicating childbirth (principal); O99.12 Other diseases of the blood and blood-forming organs and certain disorders involving the immune mechanism complicating childbirth; Z3A.37 37 weeks gestation of pregnancy; Z37.0 Single live birth; D69.6 Thrombocytopenia, unspecified; I95.9 Hypotension, unspecified; O99.892 Other specified diseases and conditions complicating childbirth; Z20.828 Contact with and (suspected) exposure to other viral communicable diseases
CPT/HCPCS: 01961; 01967; 36415; 51702; 59409; 81003; 82565; 82570; 83615; 84156; 84450; 84460; 84520; 84550; 85027; 94010; A9270-GY; J0171; J0690; J1100; J1885; J2274; J2370; J2405; J2590; J3010; J7120; U0002

== ENCOUNTER 2021-12-20 06:37 | Day surgery (SDC) | payer OTHER ==
[~2021-12-20 06:37] MED LIST changes: +Dextrose 5%-0.45% NaCl 1,000 ML IV SCH; -Lactated Ringers 1,000 ML IV SCH; +Midazolam 1 MG/ML 2 ML SDV ONE; +Sodium Chloride 0.9% 10 ML Syringe FLUSH PRN; +Sodium Chloride 0.9% 10 ML Syringe FLUSH SCH; +fentaNYL 100 MCG/2 ML SDV ONE
[2021-12-20] MEDS ORDERED: Midazolam 1 MG/ML 2 ML SDV IV ONE ×4 (06:38→07:55)
[2021-12-20] MEDS ORDERED: fentaNYL 100 MCG/2 ML SDV IV ONE ×3 (06:38→07:51)
[2021-12-20] MEDS ORDERED: Sodium Chloride 0.9% 10 ML Syringe FLUSH SCH (09:00)
== END 2021-12-20 10:17 | disposition home or self-care (01) ==
LOC: DL.ENDO 06:37
PROVIDERS: ATTEND Internal Medicine Gastroenterology
DX: K59.09 Other constipation (principal); K62.5 Hemorrhage of anus and rectum; F41.1 Generalized anxiety disorder; E78.5 Hyperlipidemia, unspecified; Z91.040 Latex allergy status; Z98.890 Other specified postprocedural states; Z01.812 Encounter for preprocedural laboratory examination; Z20.822 Contact with and (suspected) exposure to COVID-19
CPT/HCPCS: 45378; 81025; 87635; J2250; J3010; J7042; U0002

== ENCOUNTER 2024-03-27 15:13 | Inpatient (IN) | payer OTHER ==
[2024-03-27] MEDS: Lactated Ringers 1,000 ML IV SCH ×2 (15:30→17:17)
[2024-03-27] MEDS ORDERED: Methylergonovine 0.2 MG Tab PO PRN (15:36)
[2024-03-27] MEDS ORDERED: Naloxone 2 MG/2 ML Syringe IVPUSH PRN (15:36)
[2024-03-27] MEDS ORDERED: Oxytocin 10 Units/1 ML SDV IM PRN (15:36)
[2024-03-27] MEDS ORDERED: Methylergonovine 0.2 MG/1 ML Amp IM PRN (15:36)
[2024-03-27] MEDS ORDERED: Misoprostol 400 MCG (4 X 100 MCG TAB) RECTAL PRN (15:36)
[2024-03-27] MEDS ORDERED: Carboprost Tromethamine 250 MCG/1 ML Amp IM PRN ×2 (15:36)
[2024-03-27] MEDS ORDERED: Sodium Chloride 0.9% 10 ML Syringe FLUSH PRN (15:36)
[2024-03-27] MEDS ORDERED: diphenhydrAMINE 50 MG/ML SDV IVPUSH PRN (15:36)
[2024-03-27] MEDS ORDERED: Tranexamic Acid 1,000 MG in Sodium Chloride 0.9% 100 ML IV PRN (15:36)
[2024-03-27] MEDS ORDERED: ePHEDrine 50 MG/ML SDV IVPUSH PRN (15:36)
[2024-03-27] MEDS ORDERED: Lactated Ringers 1,000 ML IV SCH (15:45)
[2024-03-27] MEDS ORDERED: Oxytocin/Normal Saline 30 UNIT/500 ML BAG IV SCH (15:45)
[2024-03-27 15:54] LABS: HEMATOCRIT 38.5 % (37.0-47.0); HEMOGLOBIN 12.3 g/dL (12.0-16.0); MEAN CORPUSCULAR HEMOGLOBIN 29.1 pg (27.0-34.0); MEAN CORPUSCULAR HGB CONC 31.9 g/dL (33.0-35.0); RED BLOOD CELL COUNT 4.23 10^6/uL (4.2-5.4); WHITE BLOOD CELL COUNT,WBC 7.4 10^3/uL (5.0-10.0)
[2024-03-27] MEDS ORDERED: Succinylcholine 200 MG/10 ML MDV ONE (15:57)
[2024-03-27 15:58] LABS: ALANINE AMINOTRANSFERASE,ALT 18 U/L (14-59); ALBUMIN 2.1 g/dL (3.4-5.0); ALKALINE PHOSPHATASE 172 U/L (46-116); ANION GAP 14.8 mEq/L (7-13); ASPARTATE AMNIOTRANSFERASE,AST 18 U/L (15-37); BILIRUBIN TOTAL 0.2 mg/dL (0.2-1.0); BLOOD UREA NITROGEN,BUN 8 mg/dL (7-18); BUN/CREATININE RATIO 13.8 (No establ ref range); CALCIUM 9.2 mg/dL (8.5-10.1); CARBON DIOXIDE,CO2 21 mmol/L (21-32); CHLORIDE,CL 101 mmol/L (98-107); CREATININE 0.58 mg/dL (0.55-1.02); GLUCOSE RANDOM 114 mg/dL (70-99); POTASSIUM,K 3.8 mmol/L (3.5-5.1); PROTEIN TOTAL,TP 6.5 g/dL (6.4-8.2); SODIUM,NA 133 mmol/L (136-145)
[2024-03-27 16:00] LABS: A/G RATIO 0.48; ESTIMATED GFR 116 mL/min (>=60)
[2024-03-27] MEDS ORDERED: Ketorolac 30 MG/ML SDV ONE (16:18)
[2024-03-27] MEDS ORDERED: Dexamethasone 4 MG/ML SDV ONE (16:18)
[2024-03-27] MEDS ORDERED: Oxytocin 10 Units/1 ML SDV ONE (16:27)
[2024-03-27 16:46] LABS: APPEARANCE,URINE CLEAR (CLEAR); BILIRUBIN,URINE NEGATIVE (NEGATIVE); GLUCOSE,URINE NEGATIVE (NEGATIVE); KETONES,URINE NEGATIVE (NEGATIVE); LEUKOCYTE ESTERASE,URINE NEGATIVE (NEGATIVE); NITRITE,URINE NEGATIVE (NEGATIVE); OCCULT BLOOD,URINE NEGATIVE (NEGATIVE); PROTEIN,URINE NEGATIVE (NEGATIVE); UROBILINOGEN,URINE 0.2 mg/dL (0.2-1.0)
[2024-03-27 16:47] LABS: COLOR,URINE LIGHT YELLOW (YELLOW)
[2024-03-27 16:59] LABS: CREATININE,URINE RAND 22.47 mg/dL (No establ ref range)
[2024-03-27 17:05] LABS: PROTEIN,URINE RANDOM < 6.0 mg/dL (0.0-11.9)
[2024-03-27] MEDS: Oxytocin/Normal Saline 30 UNIT/500 ML BAG IV SCH (17:17)
[2024-03-27] MEDS: Simethicone 80 MG Tab.Chew PO SCH (17:51)
[2024-03-27] MEDS: Ondansetron 4 MG/2 ML SDV IVPUSH PRN (21:50)
[2024-03-27] MEDS: Ketorolac 30 MG/ML SDV IVPUSH SCH (23:11)
[2024-03-28] MEDS: ceFAZolin 2 GM Vial IVPUSH ONE (00:26)
[2024-03-28] MEDS: Misoprostol 400 MCG (4 X 100 MCG TAB) RECTAL ONE (00:26)
[2024-03-28] MEDS: Sodium Chloride 0.9% 10 ML Syringe FLUSH SCH (00:26)
[2024-03-28 05:07] LABS: BASOPHILS PERCENT AUTO 0.1 % (0.0-1.0); HEMATOCRIT 35.5 % (37.0-47.0); HEMOGLOBIN 11.2 g/dL (12.0-16.0); LYMPHOCYTES PERCENT AUTO 12.9 % (20.5-50.1); MEAN CORPUSCULAR HEMOGLOBIN 28.7 pg (27.0-34.0); MEAN CORPUSCULAR HGB CONC 31.5 g/dL (33.0-35.0); MONOCYTES PERCENT AUTO 4.6 % (2-8); NEUTROPHILS PERCENT AUTO 82.4 % (42.2-75.2); PLATELET COUNT,PLT 122 10^3/uL (150-450); WHITE BLOOD CELL COUNT,WBC 12.8 10^3/uL (5.0-10.0)
[2024-03-28] MEDS: Prenatal Multivitamin with Calcium/Folic Acid/Iron Tab PO SCH (08:40)
[2024-03-28] MEDS: Acetaminophen 325 MG Tab PO PRN (09:53)
[2024-03-28] MEDS ORDERED: hydrOXYzine HCl 10 MG Tab PO PRN (12:36)
[2024-03-28] MEDS: Acetaminophen/oxyCODONE 325-5 MG Tab PO PRN (15:09)
[2024-03-29] MEDS: Acetaminophen/oxyCODONE 325-5 MG Tab PO PRN (00:12)
[2024-03-29] MEDS: Docusate Sodium 100 MG Cap PO PRN (08:30)
[2024-03-29] MEDS: Ibuprofen 800 MG Tab PO PRN (08:30)
[2024-03-30] MEDS: Simethicone 80 MG Tab.Chew ONE (09:38)
[2024-03-30] MEDS: Acetaminophen/oxyCODONE 325-5 MG Tab ONE (09:38)
[2024-03-30] MEDS: Acetaminophen/oxyCODONE 325-5 MG Tab PO ONE ×2 (09:50→11:00)
[2024-03-30] MEDS: Simethicone 80 MG Tab.Chew PO ONE (09:51)
== END 2024-03-30 13:00 | disposition home or self-care (01) | DRG 788 ==
LOC: DL.OBCHECK 15:13 → DL.OB 15:36 → OBSVTOIN 16:51 → DL.OB 16:51
PROVIDERS: ADMIT Family Medicine; ATTEND Family Medicine
PROC: 10D00Z1 Extraction of Products of Conception, Low, Open Approach (ICD-10-PCS; principal; 2024-03-27 16:30)
DX: O34.211 Maternal care for low transverse scar from previous cesarean delivery (principal); O13.4 Gestational [pregnancy-induced] hypertension without significant proteinuria, complicating childbirth; O77.0 Labor and delivery complicated by meconium in amniotic fluid; O69.81X0 Labor and delivery complicated by cord around neck, without compression, not applicable or unspecified; Z3A.38 38 weeks gestation of pregnancy; Z37.0 Single live birth; O42.92 Full-term premature rupture of membranes, unspecified as to length of time between rupture and onset of labor
CPT/HCPCS: 36415; 51702; 80053; 81003; 82570; 84156; 85025; 85027; 86850; 86900; 86901; 94010; A9270-GY; J0330; J1885; J2405; J2590; J3490; J7120

== ENCOUNTER 2025-06-03 19:03 | Emergency (ER) | payer OTHER ==
[2025-06-03] MEDS: Acetaminophen/oxyCODONE 325-5 MG Tab PO ONE ×2 (19:57→20:59)
[2025-06-03] MEDS: Dexamethasone 4 MG/ML SDV PO ONE (19:57)
[2025-06-03] MEDS: Acetaminophen/HYDROcodone 325-10 MG Tab PO ONE (21:56)
[2025-06-03] MEDS ORDERED: Take Home: Acetaminophen/HYDROcodone 325-5 MG, 5 Tab Pack ONE (23:33)
[2025-06-03] MEDS: Take Home: Acetaminophen/HYDROcodone 325-5 MG, 5 Tab Pack PO ONE (23:34)
== END 2025-06-03 23:39 | disposition home or self-care (01) ==
LOC: DL.ED 19:03
DX: M54.30 Sciatica, unspecified side (principal); Z91.040 Latex allergy status
CPT/HCPCS: 99283; A9270; J1100